=== PATIENT | male | born 1995 | race Caucasian/White ===

== ENCOUNTER 2024-12-09 18:35 | Emergency (ER) | payer OTHER, SELFPAY ==
[2024-12-09 18:40] VITALS: BP 136/97; PULSE 85; TEMP 36.8; O2SAT 100; BMI 25.8
--- NOTE | 2024-12-09 20:03 | ED.GENADUL1 ---
HPI HPI - General Adult General Chief complaint: Burn/Smoke Inhalation Stated complaint: BURN Time Seen by Provider: 12/09/24 19:47 Source: patient Mode of arrival: walk-in Limitations: no limitations History of Present Illness HPI narrative: Patient is a 29-year-old male who presents to the emergency department today for evaluation of concerns for burn injury. He endorses he was working on his car and removed some metal parts that he subsequently sat on the ground. He states he went to get up from the ground and onto a washer that was hot. He mentions he has a burn wound to the palmar aspect of his left hand as a result of this. He denies any paresthesias, weakness, loss of movement to the affected extremity. No blistering. He reports his last tetanus was 2018 and denies any significant medical or surgical history otherwise. Related Data Home Medications ?Medication ?Instructions ?Recorded ?Confirmed No Known Home Medications 12/09/24 12/09/24 Allergies Allergy/AdvReac Type Severity Reaction Status Date / Time No Known Drug Allergies Allergy Verified 12/09/24 18:45 Opioid HPI Opioid Management Most Recent Opioid Data: Last Pain Scale 6 Today, 18:40 Review of Systems ROS Status of ROS 10 or more systems reviewed and unremarkable except as noted in history and below PFSH PFSH Social History Little interest or pleasure in doing things: not at all Feeling down, depressed, or hopeless: not at all Exam Narrative Exam Narrative: Constituational: Awake/ alert, no apparent distress, well hydrated HENMT: normocephalic, external ears normal, moist oral mucous membranes and oropharynx normal Eyes: EOMI and conjunctivae normal Neck: ROM intact Chest: inspection of chest normal Respiratory: Normal respiratory effort Back: nontender MSK: ROM intact, +NVI Skin: + approx 5 cm diameter first-degree burn to palmar aspect base of the left hand along the ulnar side. Neuro: no focal deficits Psych: mental status grossly normal Constitutional Vital Signs, click to edit/add: Last Vital Signs Temp 98.3 F 12/09/24 18:40 Pulse 85 12/09/24 18:40 Resp 16 12/09/24 18:40 BP 136/97 H 12/09/24 18:40 Pulse Ox 100 12/09/24 18:40 O2 Del Method Room Air 12/09/24 18:40 Course Vital Signs Vital signs: Vital Signs Temperature 98.3 F 12/09/24 18:40 Pulse Rate 85 12/09/24 18:40 Respiratory Rate 16 12/09/24 18:40 Blood Pressure 136/97 H 12/09/24 18:40 Pulse Oximetry 100 12/09/24 18:40 Oxygen Delivery Method Room Air 12/09/24 18:40 Temperature 98.3 F 12/09/24 18:40 Pulse Rate 85 12/09/24 18:40 Respiratory Rate 16 12/09/24 18:40 Blood Pressure 136/97 H 12/09/24 18:40 Pulse Oximetry 100 12/09/24 18:40 Oxygen Delivery Method Room Air 12/09/24 18:40 Medical Decision Making MDM Narrative Medical decision making narrative: Patient is a well-appearing 29-year-old male who presented to the emergency department today for evaluation concerns for a burn wound to his left hand 2/2 accidentally touching a hot washer that was on the ground after working on his car. Initial examination patient with clinical evidence consistent with first-degree burn to the palmar aspect of the left hand. No concerning neurovascular motor findings on exam. Wound does not appear to be acutely infected. Historically patient is up-to-date on tetanus. Discussed his findings with the patient including recommendations for supportive care. Wound care provided and bacitracin with dry dressing applied. Advised on follow-up with patient's primary care provider for reevaluation. Discussed signs and symptoms of any worsening condition and when to consider reevaluation by the emergency department. Patient verbalized an understanding of this and is agreeable with the plan to be discharged home. Medical Records Medical records reviewed: Yes I reviewed the patient's medical records Discharge Plan Discharge Chief Complaint: Burn/Smoke Inhalation Clinical Impression: First degree burn Patient Disposition: Home, Self-Care Prescriptions / Home Meds: No Action No Known Home Medications Print Language: Hebrew Additional Instructions: May take Tylenol and ibuprofen as needed for any pain. Apply topical antibiotic ointment and dry dressing over the next 2 to 3 days. Okay to wash your hands with soap and water. Monitor for any signs and symptoms of infection as discussed. Follow-up with your primary care provider for reevaluation as needed. May return to the ER with any concerns at any time. Referrals: Swapnil Brown MD [Primary Care Provider, Family Practice] - 1 week
[2024-12-09] MEDS: BACITRACIN 0.9 GM PACKET 1 PACKET TOPICAL (20:24)
== END 2024-12-09 20:31 | disposition home or self-care (01) ==
PROVIDERS: Emergency Provider Emergency Medicine; PCP Family Medicine
DX: T23.152A Burn of first degree of left palm, initial encounter (principal)
CPT/HCPCS: 99282